=== PATIENT | male | born 1955 | race Caucasian/White ===

== ENCOUNTER 2016-10-03 13:29 | Emergency (ER) | payer OTHER ==
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
[2016-10-03 19:52] VITALS: BP 120/90
[2016-10-03] MEDS ORDERED: MOTRIN PO ONE (19:52)
== END 2016-10-03 20:10 | disposition home or self-care (01) ==
LOC: ED 13:29
DX: S39.012A Strain of muscle, fascia and tendon of lower back, initial encounter (principal); E03.9 Hypothyroidism, unspecified; Z87.891 Personal history of nicotine dependence; V49.49XA Driver injured in collision with other motor vehicles in traffic accident, initial encounter; Y93.9 Activity, unspecified; Y92.9 Unspecified place or not applicable; Y99.9 Unspecified external cause status
CPT/HCPCS: 99282